=== PATIENT | female | born 1985 | race African-American/Black ===

== ENCOUNTER → 2016-11-13 | Outpatient (CLI) | payer OTHER | LOC: MW.CHOBGYN 08:58 | PROVIDERS: ATTEND Obstetrics & Gynecology | DX: Z34.90 Encounter for supervision of normal pregnancy, unspecified, unspecified trimester (principal); N91.2 Amenorrhea, unspecified | CPT/HCPCS: 81003; 81025; 87480; 87491; 87510; 87591; 87660 ==

== ENCOUNTER → 2016-12-08 | Outpatient (CLI) | payer OTHER | LOC: MW.CHOBGYN 09:14 | PROVIDERS: ATTEND Obstetrics & Gynecology | DX: Z34.90 Encounter for supervision of normal pregnancy, unspecified, unspecified trimester (principal) | CPT/HCPCS: 81003 ==

== ENCOUNTER 2017-06-02 09:57 | Inpatient (IN) | payer OTHER ==
[2017-06-02] MEDS ORDERED: Oxytocin/0.9 % Sodium Chloride 30 UNIT/500 ML BAG IV ONE (10:00)
[2017-06-02] MEDS ORDERED: Lidocaine 1% 50 ML MDV INJECT PRN (10:00)
[2017-06-02] MEDS ORDERED: Oxytocin/0.9 % Sodium Chloride 30 UNIT/500 ML BAG ONE (10:11)
--- NOTE | 2017-06-02 10:36 | PCM.LDHP ---
L&D History of Present Illness - General Date of Service: 06/02/17 Admit Problem/Dx: Admission Diagnosis/Problem Admission Diagnosis/Problem Source of Information: Patient History Limitations: Reports: No Limitations - History of Present Illness Improves with: Reports: None Worsens with: Reports: None Associated Symptoms: Reports: N H&P Review of Systems - Review of Systems: Review Of Systems: See Below General: Reports: No Symptoms HEENT: Reports: No Symptoms Pulmonary: Reports: No Symptoms Cardiovascular: Reports: No Symptoms Gastrointestinal: Reports: No Symptoms Genitourinary: Reports: No Symptoms Musculoskeletal: Reports: No Symptoms Skin: Reports: No Symptoms Psychiatric: Reports: No Symptoms Neurological: Reports: No Symptoms Hematologic/Lymphatic: Reports: No Symptoms Immunologic: Reports: No Symptoms L&D Exam - Exam Exam: See Below - OB Specific Fundal Height In cm: 38 Contraction Duration (sec): 45 Contraction Frequency (min): 2-3 Contraction Intensity: Moderate to Strong Movement: Active Heart Tones: Present Presentation: Vertex - Smallwood Score Smallwood Score Cervix Position: Anterior Smallwood Score Consistency: Soft Smallwood Score Effacement: >80% Smallwood Score Dilation: > 5 cm Smallwood Score 's Station: -1 ,0 Smallwood Score Total: 12 - Exam General: Alert, Oriented HEENT: PERRLA, Conjunctiva Clear, EACs Clear, EOMI, Hearing Intact, Mucosa Moist & [place], Nares Patent, Normal Nasal Septum, Posterior Pharynx Clear, TMs Clear Neck: Supple, Trachea Midline Lungs: Clear to Auscultation, Normal Respiratory Effort Cardiovascular: Regular Rate, Regular Rhythm GI/Abdominal Exam: Normal Bowel Sounds, Soft, Non-Tender, No Organomegaly, No Distention, No Abnormal Bruit, No Mass, Pelvis Stable Rectal Exam: Normal Exam, Normal Rectal Tone Genitourinary: Normal external exam, Normal bimanual exam, Normal speculum exam Back Exam: Normal Inspection, Full Range of Motion Extremities: Normal Inspection, Normal Range of Motion, Non-Tender, No Pedal Edema, Normal Capillary Refill Skin: Warm, Dry, Intact Neurological: Cranial Nerves Intact, Reflexes Equal Bilateral Psychiatric: Alert, Normal Affect, Normal Mood Problem List Initiated/Reviewed/Updated: Yes Orders Last 24hrs: Term in active labor. CX. c/c/v/intact/0
[2017-06-02] MEDS ORDERED: Lanolin 100% Cream 7 GM Tube TOP PRN (10:37)
[2017-06-02] MEDS ORDERED: Docusate Sodium 100 MG Cap PO PRN (10:37)
[2017-06-02] MEDS ORDERED: Benzocaine/Menthol 20%-0.5% Spray 78 GM Cannister TOP PRN (10:37)
[2017-06-02] MEDS ORDERED: Ibuprofen 400 MG Tab PO PRN (10:37)
[2017-06-02] MEDS ORDERED: Acetaminophen 500 MG Tab PO PRN (10:37)
[2017-06-02] MEDS ORDERED: Bisacodyl 10 MG Supp RECTAL PRN (10:37)
[2017-06-02] MEDS ORDERED: Witch Hazel Medicated Pads 40/Jar TOP PRN (10:37)
[2017-06-02] MEDS ORDERED: Lidocaine 1% 50 ML MDV ONE (10:50)
--- NOTE | 2017-06-02 11:22 | OR ---
SURGEON: Jaron Brown MD DATE OF PROCEDURE: DELIVERY NOTE. Reyna is a 31-year-old patient. She is para 1-0-0-1. She is followed in our clinic primarily at this by our faculty criminal justice Mechelle Shilrey. She is 38 plus 4. The patient has no complication. However, her GBS status was unknown or it is not done in time. She presented to Labor and Delivery in active labor and at the time of admission she was complete complete, vertex, 0 to +1 station with intact membrane. heart rate was category 1. The patient did have artificial rupture of the membranes by me and she went ahead and had a normal spontaneous vaginal delivery of a female fetus. score is 8 and 9. Weight is not available at this time. Small midline episiotomy is needed for the delivery. The placenta delivered spontaneous complete and intact and repair of the episiotomy was done with 3-0 Vicryl after infiltrating the area with 1% Xylocaine for local anesthesia. Estimated blood loss is 250-300 mL in this delivery. There was no complication. MADDISON / JOHN /[id number]
[2017-06-02] MEDS: Ibuprofen 800 MG Tab PO PRN (11:54)
[2017-06-02] MEDS: Acetaminophen 500 MG Tab PO PRN ×2 (15:19→22:24)
[2017-06-02] MEDS: Benzocaine/Cetylpyridinium/Menthol Lozenge MUCMEM PRN ×2 (15:19→20:12)
[2017-06-02] MEDS: oxyCODONE 5 MG Tab PO PRN ×2 (15:21→22:25)
[2017-06-02] MEDS ORDERED: Misoprostol 200 MCG Tab PO PRN (15:46)
[2017-06-02] MEDS ORDERED: Water For Irrigation,Sterile 1,000 ML Container IRR PRN (15:46)
[2017-06-02] MEDS ORDERED: Carboprost Tromethamine 250 MCG/1 ML Amp IM PRN (15:46)
[2017-06-02] MEDS ORDERED: Sodium Chloride 0.9% 10 ML Syringe FLUSH PRN (15:46)
[2017-06-02] MEDS ORDERED: Methylergonovine 0.2 MG/1 ML Amp IM PRN (15:46)
[2017-06-02] MEDS ORDERED: Sodium Chloride 0.9% 2.5 ML Syringe FLUSH PRN (15:46)
[2017-06-02] MEDS ORDERED: Lactated Ringers 1,000 ML IV SCH (16:00)
[2017-06-03] MEDS: Ibuprofen 800 MG Tab PO PRN (01:00)
[2017-06-03] MEDS: Benzocaine/Cetylpyridinium/Menthol Lozenge MUCMEM PRN (05:16)
[2017-06-03] MEDS ORDERED: guaiFENesin/Dextromethorphan 100-10 MG/5 ML Soln 10 ML Cup PO PRN (05:54)
--- NOTE | 2017-06-03 11:04 | PCM.PNPP ---
- General Info Date of Service: 06/03/17 Functional Status: Reports: Pain Controlled - Review of Systems General: Reports: No Symptoms HEENT: Reports: No Symptoms Pulmonary: Reports: No Symptoms Cardiovascular: Reports: No Symptoms Gastrointestinal: Reports: No Symptoms Genitourinary: Reports: No Symptoms Musculoskeletal: Reports: No Symptoms Skin: Reports: No Symptoms Neurological: Reports: No Symptoms Psychiatric: Reports: No Symptoms - General Info Date of Service: 06/03/17 - Patient Data Vital Signs - Most Recent: Last Vital Signs Temp 36.9 C 06/03/17 07:48 Pulse 90 06/03/17 07:48 Resp 15 06/03/17 07:48 BP 108/66 06/03/17 07:48 Pulse Ox 98 06/03/17 07:48 Weight - Most Recent: 82.781 kg Lab Results - Last 24 Hours: Laboratory Results - last 24 hr 06/02/17 06/02/17 06/03/17 Range/Units 12:14 12:14 05:20 WBC 10.65 (4.0-11.0) K/uL RBC 3.70 L (4.30-5.90) M/uL Hgb 10.0 L 9.1 L (12.0-16.0) g/dL Hct 32.4 L 29.0 L (36.0-46.0) % MCV 87.6 (80.0-98.0) fL MCH 27.0 (27.0-32.0) pg MCHC 30.9 L (31.0-37.0) g/dL RDW Std Deviation 49.9 (28.0-62.0) fl RDW Coeff of Gricelda 16 H (11.0-15.0) % Plt Count 246 (150-400) K/uL MPV 9.10 (7.40-12.00) fL Nucleated RBC % 0.0 /100WBC Nucleated RBCs # 0 K/uL Blood Type O POSITIVE Antibody Screen NEGATIVE Med Orders - Current: Current Medications Acetaminophen (Tylenol Extra Strength) 500 mg PO Q4H PRN PRN Reason: Pain Last Admin: 06/02/17 22:24 Dose: 500 mg Acetaminophen (Tylenol Extra Strength) 1,000 mg PO Q4H PRN PRN Reason: Pain Benzocaine/Menthol (Dermoplast Pain Relief 20%-0.5% Reading) 78 gm TOP ASDIRECTED PRN PRN Reason: Perineal Comfort Measure Last Admin: 06/02/17 13:55 Dose: 1 can Benzocaine/Menthol (Cepacol Sore Throat) 1 lozenge MUCMEM ASDIRECTED PRN PRN Reason: throat pain Last Admin: 06/03/17 05:16 Dose: 1 lozenge Bisacodyl (Dulcolax) 10 mg RECTAL .ONCE PRN PRN Reason: Constipation Carboprost Tromethamine (Hemabate Ds) 250 mcg IM ASDIRECTED PRN PRN Reason: Post Hemorrhage Docusate Sodium (Colace) 100 mg PO BID PRN PRN Reason: Constipation Emollient Ointment (Lansinoh Hpa) 0 gm TOP ASDIRECTED PRN PRN Reason: Sore Nipples Guaifenesin/Dextromethorphan (Robitussin Dm) 10 ml PO Q6H PRN PRN Reason: Cough Last Admin: 06/03/17 06:55 Dose: 10 ml Lactated Ringer's (Ringers, Lactated) 1,000 mls @ 150 mls/hr IV ASDIRECTED IJEOMA Ibuprofen (Motrin) 400 mg PO Q4H PRN PRN Reason: Pain Ibuprofen (Motrin) 800 mg PO Q6H PRN PRN Reason: Pain Last Admin: 06/03/17 01:00 CDT Dose: 800 mg Lidocaine HCl (Xylocaine 1%) 50 ml INJECT .ONCE PRN PRN Reason: Laceration repair Methylergonovine Maleate (Methergine) 0.2 mg IM ASDIRECTED PRN PRN Reason: Post Hemorrhage Misoprostol (Cytotec) 200 mcg PO .ONCE PRN PRN Reason: Post Hemorrhage Oxycodone HCl (Oxycodone) 5 mg PO Q2H PRN PRN Reason: Pain Last Admin: 06/02/17 22:25 Dose: 5 mg Sodium Chloride (Saline Flush) 10 ml FLUSH ASDIRECTED PRN PRN Reason: Keep Vein Open Sodium Chloride (Saline Flush) 2.5 ml FLUSH ASDIRECTED PRN PRN Reason: Keep Vein Open Sterile Water (Sterile Water For Irrigation) 1,000 ml IRR ASDIRECTED PRN PRN Reason: delivery Witch Belinda (Tucks) 1 pad TOP ASDIRECTED PRN PRN Reason: comfort care Discontinued Medications Oxytocin/Sodium Chloride (Oxytocin 30 Unit/500 Ml-Ns) Confirm Administered Dose 30 unit in 500 mls @ as directed .ROUTE .STK-MED ONE Stop: 06/02/17 10:12 Last Admin: 06/02/17 10:55 Dose: 30 unit Oxytocin/Sodium Chloride (Oxytocin 30 Unit/500 Ml-Ns) 30 unit in 500 mls @ 500 mls/hr IV ONETIME ONE Stop: 06/02/17 10:59 Lidocaine HCl (Xylocaine 1%) Confirm Administered Dose 50 ml .ROUTE .STK-MED ONE Stop: 06/02/17 10:51 Last Admin: 06/02/17 10:55 Dose: 50 ml - Interaction Infant Disposition, : in Room with Family Interaction: Holding Infant Feeding: Attempted ; Nursed Fair/Poor Support Person: - Recovery Exam Fundal Tone: Firm Fundal Level: At Umbilicus Fundal Placement: Midline Lochia Amount: Scant Lochia Color: Rubra/Red Perineum Description: Other (see below) Other Perinuem Description: with repaired episiotomy Episiotomy/Laceration: Approximated Bladder Status: Nonpalpable Urinary Elimination: Voided - Exam General: Alert, Oriented HEENT: Pupils Equal Neck: Supple Lungs: Clear to Auscultation, Normal Respiratory Effort Cardiovascular: Regular Rate, Regular Rhythm GI/Abdominal Exam: Normal Bowel Sounds, Soft, Non-Tender, No Organomegaly, No Distention, No Abnormal Bruit, No Mass, Pelvis Stable Extremities: Normal Inspection, Normal Range of Motion, Non-Tender, No Pedal Edema, Normal Capillary Refill Skin: Warm, Dry, Intact Wound/Incisions: Healing Well Neurological: No New Focal Deficit Psy/Mental Status: Alert, Normal Affect, Normal Mood - Problem List Review Problem List Initiated/Reviewed/Updated: Yes - My Orders Last 24 Hours: My Active Orders 06/02/17 14:55 Benzocaine/Cetylpyrd/Menthol [Cepacol Sore Throat] 1 lozenge MUCMEM ASDIRECTED PRN 06/02/17 15:46 May Shower [RC] ASDIRECTED Notify Provider [RC] PRN Vital Signs [RC] PER UNIT ROUTINE Carboprost Tromethamine [Hemabate DS] 250 mcg IM ASDIRECTED PRN Methylergonovine [Methergine] 0.2 mg IM ASDIRECTED PRN Misoprostol [Cytotec] 200 mcg PO .ONCE PRN Sodium Chloride 0.9% [Saline Flush] 10 ml FLUSH ASDIRECTED PRN Sodium Chloride 0.9% [Saline Flush] 2.5 ml FLUSH ASDIRECTED PRN Water For Irrigation,Sterile [Sterile Water for Irrigation] 1,000 ml IRR ASDIRECTED PRN Scalp Electrode [WOMSER] Per Unit Routine Peripheral IV Insertion Adult [OM.PC] Routine 06/02/17 16:00 Lactated Ringers [Ringers, Lactated] 1,000 ml IV ASDIRECTED 06/03/17 05:54 Dextromethorphan/guaiFENesin [Robitussin DM] 10 ml PO Q6H PRN 06/03/17 Lunch Regular Diet [DIET] - Assessment Assessment:: S/P doing well - Plan Plan:: To go home today
== END 2017-06-03 17:05 | disposition home or self-care (01) | DRG 775 ==
LOC: MW.OBCHECK 09:57 → MW.OB 09:57 → MW.OBCHECK 10:48 → OBSVTOIN 10:48 → INTOOBSV 10:48 → UNDOADMOB 10:48 → MW.OB 17:00 → UNDODISIN 06-03 17:05
PROVIDERS: ADMIT Family Medicine; ATTEND Obstetrics & Gynecology
PROC: 10E0XZZ Delivery of Products of Conception, External Approach (ICD-10-PCS; principal; 2017-06-02)
PROC: 10907ZC Drainage of Amniotic Fluid, Therapeutic from Products of Conception, Via Natural or Artificial Opening (ICD-10-PCS; 2017-06-02)
PROC: 0W8NXZZ Division of Female Perineum, External Approach (ICD-10-PCS; 2017-06-02)
DX: O70.9 Perineal laceration during delivery, unspecified (principal); Z3A.38 38 weeks gestation of pregnancy; Z37.0 Single live birth
CPT/HCPCS: 36415; 59025; 59409; 85014; 85018; 85027; 86850; 86900; 86901; A9270-GY; J2590

== ENCOUNTER 2019-05-24 19:33 | Inpatient (IN) | payer BC ==
[2019-05-24] MEDS ORDERED: Lidocaine 1% 50 ML MDV INJECT PRN (19:51)
[2019-05-24] MEDS ORDERED: Butorphanol 1 MG/ML SDV IVPUSH PRN (19:51)
[2019-05-24] MEDS ORDERED: Sodium Chloride 0.9% 10 ML SDV IV PRN (19:51)
[2019-05-24] MEDS ORDERED: Tranexamic Acid 1,000 MG in Sodium Chloride 0.9% 100 ML IV PRN (19:51)
[2019-05-24] MEDS ORDERED: Sodium Chloride 0.9% 2.5 ML Syringe FLUSH PRN (19:51)
[2019-05-24] MEDS ORDERED: Sodium Chloride 0.9% 10 ML Syringe FLUSH PRN (19:51)
[2019-05-24] MEDS ORDERED: Misoprostol 200 MCG Tab PO PRN (19:51)
[2019-05-24] MEDS ORDERED: Carboprost Tromethamine 250 MCG/1 ML Amp IM PRN (19:51)
[2019-05-24] MEDS ORDERED: Nalbuphine 10 MG/1 ML Vial IVPUSH PRN (19:51)
[2019-05-24] MEDS ORDERED: Water For Irrigation,Sterile 1,000 ML Container IRR PRN (19:51)
[2019-05-24] MEDS ORDERED: Methylergonovine 0.2 MG/1 ML Amp IM PRN (19:51)
[2019-05-24] MEDS ORDERED: Oxytocin/0.9 % Sodium Chloride 30 UNIT/500 ML BAG IV SCH (20:00)
--- NOTE | 2019-05-24 20:17 | PCM.LDHP ---
L&D History of Present Illness - General Date of Service: 05/24/19 Admit Problem/Dx: Patient Status Order with Admit Dx/Problem 05/24/19 19:37 Patient Status [ADT] Routine 05/24/19 19:51 Patient Status [ADT] Routine Admission Diagnosis/Problem Admission Diagnosis/Problem 05/24/19 20:13 33 yo EDC 05/28/2019 39 3/7wks Active labor, O+, RI, GBS neg Source of Information: Patient History Limitations: Reports: No Limitations - History of Present Illness Timing/Duration: Reports: minutes: Location, : Reports: Abdomen Quality: Reports: Stabbing, Throbbing Severity: Severe Improves with: Reports: None Worsens with: Reports: None Associated Symptoms: Reports: N - Related Data Allergies/Adverse Reactions: Allergies Allergy/AdvReac Type Severity Reaction Status Date / Time No Known Allergies Allergy Verified 05/24/19 19:37 Home Medications: Home Meds . [No Known Home Meds] 05/24/19 [History] Social & Family History - Caffeine Use Caffeine Use: Reports: Soda H&P Review of Systems - Review of Systems: Review Of Systems: See Below General: Reports: No Symptoms HEENT: Reports: No Symptoms Pulmonary: Reports: No Symptoms Cardiovascular: Reports: No Symptoms Gastrointestinal: Reports: No Symptoms Genitourinary: Reports: No Symptoms Musculoskeletal: Reports: No Symptoms Skin: Reports: No Symptoms Psychiatric: Reports: No Symptoms Neurological: Reports: No Symptoms Hematologic/Lymphatic: Reports: No Symptoms Immunologic: Reports: No Symptoms L&D Exam - Exam Exam: See Below - Vital Signs Weight: 86.183 kg - OB Specific Contraction Intensity: Strong Movement: Active Heart Tones: Present Heart Rate (FHR) Variability: Moderate (6-25 bmp) Presentation: Vertex - Smallwood Score Smallwood Score Cervix Position: Anterior Smallwood Score Consistency: Soft Smallwood Score Effacement: >80% Smallwood Score Dilation: > 5 cm Smallwood Score Infant's Station: -1 ,0 Smallwood Score Total: 12 - Exam General: Alert, Oriented HEENT: Hearing Intact Lungs: Clear to Auscultation, Normal Respiratory Effort Cardiovascular: Regular Rate, Regular Rhythm, Normal S1, Normal S2 GI/Abdominal Exam: Soft, Non-Tender, No Distention, No Mass, Pelvis Stable Rectal Exam: Deferred Genitourinary: Normal external exam, Cervical dilitation Back Exam: Normal Inspection, Full Range of Motion Extremities: Normal Inspection, Normal Range of Motion, Non-Tender, No Pedal Edema, Normal Capillary Refill Skin: Warm, Dry, Intact Neurological: Cranial Nerves Intact, Strength Equal Bilateral, Normal Gait, Normal Speech, Normal Tone, Sensation Intact Psychiatric: Alert, Normal Affect, Normal Mood - Problem List (1) Supervision of normal IUP (intrauterine ) in multigravida SNOMED Code(s): 523564704, 313495277, [id number] ICD Code: Z34.80 - ENCOUNTER FOR SUPRVSN OF NORMAL , UNSP TRIMESTER Status: Acute Priority: High Current Visit: Yes Qualifiers: Trimester: third trimester Qualified Code(s): Z34.83 - Encounter for supervision of other normal , third trimester Problem List Initiated/Reviewed/Updated: Yes Orders Last 24hrs: Active Orders 24 hr Category Date Time Status Patient Status [ADT] Routine ADT 05/24/19 19:51 Active Heart Tones [RC] CONTINUOUS Care 05/24/19 19:51 Active Non Stress Test [RC] PER UNIT ROUTINE Care 05/24/19 19:37 Active May Shower [RC] ASDIRECTED Care 05/24/19 19:51 Active Notify Provider [RC] PRN Care 05/24/19 19:51 Active Up ad Sandy [RC] ASDIRECTED Care 05/24/19 19:37 Active Vaginal Exam [RC] Click to Edit Care 05/24/19 19:37 Active Vital Signs [RC] PER UNIT ROUTINE Care 05/24/19 19:37 Active CBC W/O DIFF,HEMOGRAM [HEME] Routine Lab 05/24/19 19:51 Ordered RAPID PLASMA REAGIN, QUANT [REF] Routine Lab 05/24/19 19:51 Ordered TYPE AND SCREEN [BBK] Routine Lab 05/24/19 19:51 Ordered Butorphanol [Stadol] Med 05/24/19 19:51 Active 1 mg IVPUSH Q1H PRN Carboprost Tromethamine [Hemabate DS] Med 05/24/19 19:51 Active 250 mcg IM ASDIRECTED PRN Lactated Ringers [Ringers, Lactated] 1,000 ml Med 05/24/19 20:00 Active IV ASDIRECTED Lidocaine 1% [Xylocaine 1%] Med 05/24/19 19:51 Active 50 ml INJECT ONETIME PRN Methylergonovine [Methergine] Med 05/24/19 19:51 Active 0.2 mg IM ASDIRECTED PRN Nalbuphine [Nubain] Med 05/24/19 19:51 Active 10 mg IVPUSH Q1H PRN Oxytocin/0.9 % Sodium Chloride [Oxytocin 30 Unit/500 ML Med 05/24/19 20:00 Active -NS] 30 unit in 500 ml IV TITRATE Sodium Chloride 0.9% [Normal Saline] Med 05/24/19 19:51 Active 10 ml IV ASDIRECTED PRN Sodium Chloride 0.9% [Saline Flush] Med 05/24/19 19:51 Active 10 ml FLUSH ASDIRECTED PRN Sodium Chloride 0.9% [Saline Flush] Med 05/24/19 19:51 Active 2.5 ml FLUSH ASDIRECTED PRN Tranexamic Acid [Cyklokapron] 1,000 mg Med 05/24/19 19:51 Active Sodium Chloride 0.9% [Normal Saline] 100 ml IV ONETIME Water For Irrigation,Sterile [Sterile Water for Med 05/24/19 19:51 Active Irrigation] 1,000 ml IRR ASDIRECTED PRN miSOPROStol [Cytotec] Med 05/24/19 19:51 Active 200 mcg PO ONETIME PRN Scalp Electrode [WOMSER] Per Unit Routine Oth 05/24/19 19:51 Ordered Peripheral IV Insertion Adult [OM.PC] Routine Oth 05/24/19 19:51 Ordered Resuscitation Status Routine Resus Stat 05/24/19 19:37 Ordered Medication Orders Butorphanol Tartrate (Stadol) 1 mg IVPUSH Q1H PRN PRN Reason: Pain Carboprost Tromethamine (Hemabate Ds) 250 mcg IM ASDIRECTED PRN PRN Reason: Post Hemorrhage Tranexamic Acid 1,000 mg/ (Sodium Chloride) 110 mls @ 660 mls/hr IV ONETIME PRN PRN Reason: Bleeding Lactated Ringer's (Ringers, Lactated) 1,000 mls @ 150 mls/hr IV ASDIRECTED IJEOMA Oxytocin/Sodium Chloride (Oxytocin 30 Unit/500 Ml-Ns) 30 unit in 500 mls @ 999 mls/hr IV TITRATE IJEOMA Lidocaine HCl (Xylocaine 1%) 50 ml INJECT ONETIME PRN PRN Reason: Laceration repair Methylergonovine Maleate (Methergine) 0.2 mg IM ASDIRECTED PRN PRN Reason: Post Hemorrhage Misoprostol (Cytotec) 200 mcg PO ONETIME PRN PRN Reason: Post Hemorrhage Nalbuphine HCl (Nubain) 10 mg IVPUSH Q1H PRN PRN Reason: Pain (severe 7-10) Sodium Chloride (Saline Flush) 10 ml FLUSH ASDIRECTED PRN PRN Reason: Keep Vein Open Sodium Chloride (Saline Flush) 2.5 ml FLUSH ASDIRECTED PRN PRN Reason: Keep Vein Open Sodium Chloride (Normal Saline) 10 ml IV ASDIRECTED PRN PRN Reason: IV Use Sterile Water (Sterile Water For Irrigation) 1,000 ml IRR ASDIRECTED PRN PRN Reason: delivery Assessment/Plan Comment:: Labor A: 33 yo EDC 05/28/2019 39 3/7wks Active labor, O+, RI, GBS neg P: Admit, epidural, anticipate . Dr Brown updated.
[2019-05-24] MEDS ORDERED: fentaNYL 100 MCG/2 ML SDV ONE (20:18)
[2019-05-24] MEDS ORDERED: Ropivacaine HCl/PF 100 ML ONE (20:19)
[2019-05-24] MEDS: Lactated Ringers 1,000 ML IV SCH ×2 (20:30→21:07)
--- NOTE | 2019-05-24 21:39 | PCM.PREANE ---
Preanesthetic Assessment - Anesthesia/Transfusion/Family Hx Anesthesia History: No Prior Anesthesia Family History of Anesthesia Reaction: No Transfusion History: No Prior Transfusion(s) - Physical Assessment NPO Status Date: 05/24/19 NPO Status Time: 15:00 Height: 1.68 m Weight: 86.183 kg ASA Class: 1 - Lab Values: Laboratory Last Values WBC 5.47 K/uL (4.0-11.0) 05/24/19 20:08 RBC 4.40 M/uL (4.30-5.90) 05/24/19 20:08 Hgb 13.1 g/dL (12.0-16.0) 05/24/19 20:08 Hct 41.1 % (36.0-46.0) 05/24/19 20:08 MCV 93.4 fL (80.0-98.0) 05/24/19 20:08 MCH 29.8 pg (27.0-32.0) 05/24/19 20:08 MCHC 31.9 g/dL (31.0-37.0) 05/24/19 20:08 RDW Std Deviation 46.0 fl (28.0-62.0) 05/24/19 20:08 RDW Coeff of Gricelda 14 % (11.0-15.0) 05/24/19 20:08 Plt Count 190 K/uL (150-400) 05/24/19 20:08 MPV 8.90 fL (7.40-12.00) 05/24/19 20:08 Nucleated RBC % 0.0 /100WBC 05/24/19 20:08 Nucleated RBCs # 0 K/uL 05/24/19 20:08 Blood Type O POSITIVE 05/24/19 20:08 Antibody Screen NEGATIVE 05/24/19 20:08 - Allergies Allergies/Adverse Reactions: Allergies Allergy/AdvReac Type Severity Reaction Status Date / Time No Known Allergies Allergy Verified 05/24/19 19:37 - Acknowledgements Anesthesia Type Planned: Epidural Pt an Appropriate Candidate for the Planned Anesthesia: Yes Alternatives and Risks of Anesthesia Discussed w Pt/Guardian: Yes Pt/Guardian Understands and Agrees with Anesthesia Plan: Yes PreAnesthesia Questionnaire - HOME MEDS Home Medications: Home Meds . [No Known Home Meds] 05/24/19 [History] - CURRENT (IN HOUSE) MEDS Current Meds: Current Medications Butorphanol Tartrate (Stadol) 1 mg IVPUSH Q1H PRN PRN Reason: Pain Carboprost Tromethamine (Hemabate Ds) 250 mcg IM ASDIRECTED PRN PRN Reason: Post Hemorrhage Tranexamic Acid 1,000 mg/ (Sodium Chloride) 110 mls @ 660 mls/hr IV ONETIME PRN PRN Reason: Bleeding Lactated Ringer's (Ringers, Lactated) 1,000 mls @ 150 mls/hr IV ASDIRECTED [facility] Last Admin: 05/24/19 21:07 Dose: 150 mls/hr Oxytocin/Sodium Chloride (Oxytocin 30 Unit/500 Ml-Ns) 30 unit in 500 mls @ 999 mls/hr IV TITRATE [facility] Lidocaine HCl (Xylocaine 1%) 50 ml INJECT ONETIME PRN PRN Reason: Laceration repair Methylergonovine Maleate (Methergine) 0.2 mg IM ASDIRECTED PRN PRN Reason: Post Hemorrhage Misoprostol (Cytotec) 200 mcg PO ONETIME PRN PRN Reason: Post Hemorrhage Nalbuphine HCl (Nubain) 10 mg IVPUSH Q1H PRN PRN Reason: Pain (severe 7-10) Sodium Chloride (Saline Flush) 10 ml FLUSH ASDIRECTED PRN PRN Reason: Keep Vein Open Sodium Chloride (Saline Flush) 2.5 ml FLUSH ASDIRECTED PRN PRN Reason: Keep Vein Open Sodium Chloride (Normal Saline) 10 ml IV ASDIRECTED PRN PRN Reason: IV Use Sterile Water (Sterile Water For Irrigation) 1,000 ml IRR ASDIRECTED PRN PRN Reason: delivery Discontinued Medications Fentanyl (Sublimaze) Confirm Administered Dose 100 mcg .ROUTE .Razorsight-MED ONE Stop: 05/24/19 20:19 Last Admin: 05/24/19 21:19 Dose: Not Given Ropivacaine (Naropin 0.2%) Confirm Administered Dose 100 mls @ as directed .ROUTE .STK-MED ONE Stop: 05/24/19 20:20 Last Admin: 05/24/19 21:19 Dose: Not Given
--- NOTE | 2019-05-24 21:44 | PCM.PRNOTE ---
- Free Text/Narrative Note: Anes Note Yue requests epidural for L&D. Sitting Position. 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 Epidural placed Level 3-4 midline approach, 3rd attempt. BRIJESH at 5 cm. Epidural cath threaded 5 cm with ease. Epidural cath secured at 10 cm at skin using sterile clear adhesive dressing. Test dose 0920 3 cc 1.5% lido with epi negative. Load 10cc 0.2% ropivicaine with 1 mcg/cc fentanyl in slow divided doses. Pump started same solution at 8 cc hr with 6 cc q 20 min prn bolus. Time with patient [id number] [facility] [employer]
[2019-05-24] MEDS ORDERED: Benzocaine/Menthol 20%-0.5% Spray 78 GM Cannister TOP PRN (22:48)
[2019-05-24] MEDS ORDERED: Bisacodyl 10 MG Supp RECTAL PRN (22:48)
[2019-05-24] MEDS ORDERED: Acetaminophen 500 MG Tab PO PRN (22:48)
[2019-05-24] MEDS ORDERED: Witch Hazel Medicated Pads 40/Jar TOP PRN (22:48)
[2019-05-24] MEDS ORDERED: Lanolin 100% Cream 7 GM Tube TOP PRN (22:48)
[2019-05-24] MEDS ORDERED: Docusate Sodium 100 MG Cap PO PRN (22:48)
[2019-05-24] MEDS ORDERED: Ibuprofen 400 MG Tab PO PRN (22:48)
[2019-05-24] MEDS ORDERED: oxyCODONE 5 MG Tab PO PRN (22:48)
--- NOTE | 2019-05-24 22:48 | PCM.DEL ---
L & D Note - General Info Date of Service: 05/24/19 Mother's Due Date: 05/28/19 - Delivery Note Labor: Spontaneous Delivery Outcome: Livebirth Infant Delivery Method: Spontaneous Vaginal Delivery-Single Delivery Mode: Spontaneous Presentation: Vertex Nuchal Cord: Present (reduced over head) Anesthesia Type: Epidural Episiotomy Type: None Laceration: None Placenta: Intact, Spontaneous Cord: 3 Vessels Estimated Blood Loss: 100 Resuscitation Needed: No Score 1 min: 8 Score 5 min: 9 Second Stage Interventions: Reports: Pushing, Pulls Own Legs Back - General Info Date of Service: 05/24/19 Admission Dx/Problem (Free Text): Patient Status Order with Admit Dx/Problem 05/24/19 19:37 Patient Status [ADT] Routine 05/24/19 19:51 Patient Status [ADT] Routine Admission Diagnosis/Problem Admission Diagnosis/Problem 05/24/19 20:13 33 yo EDC 05/28/2019 39 3/7wks Active labor, O+, RI, GBS neg Functional Status: Reports: Pain Controlled - Review of Systems General: Reports: No Symptoms HEENT: Reports: No Symptoms Pulmonary: Reports: No Symptoms Cardiovascular: Reports: No Symptoms Gastrointestinal: Reports: No Symptoms Genitourinary: Reports: No Symptoms Musculoskeletal: Reports: No Symptoms Skin: Reports: No Symptoms Neurological: Reports: No Symptoms Psychiatric: Reports: No Symptoms - Patient Data Weight - Most Recent: 86.183 kg Lab Results Last 24 Hours: Laboratory Results - last 24 hr 05/24/19 05/24/19 Range/Units 20:08 20:08 WBC 5.47 (4.0-11.0) K/uL RBC 4.40 (4.30-5.90) M/uL Hgb 13.1 (12.0-16.0) g/dL Hct 41.1 (36.0-46.0) % MCV 93.4 (80.0-98.0) fL MCH 29.8 (27.0-32.0) pg MCHC 31.9 (31.0-37.0) g/dL RDW Std Deviation 46.0 (28.0-62.0) fl RDW Coeff of [place] 14 (11.0-15.0) % Plt Count 190 (150-400) K/uL MPV 8.90 (7.40-12.00) fL Nucleated RBC % 0.0 /100WBC Nucleated RBCs # 0 K/uL Blood Type O POSITIVE Antibody Screen NEGATIVE Med Orders - Current: Current Medications Butorphanol Tartrate (Stadol) 1 mg IVPUSH Q1H PRN PRN Reason: Pain Carboprost Tromethamine (Hemabate Ds) 250 mcg IM ASDIRECTED PRN PRN Reason: Post Hemorrhage Tranexamic Acid 1,000 mg/ (Sodium Chloride) 110 mls @ 660 mls/hr IV ONETIME PRN PRN Reason: Bleeding Lactated Ringer's (Ringers, Lactated) 1,000 mls @ 150 mls/hr IV ASDIRECTED [facility] Last Admin: 05/24/19 21:07 Dose: 150 mls/hr Oxytocin/Sodium Chloride (Oxytocin 30 Unit/500 Ml-Ns) 30 unit in 500 mls @ 999 mls/hr IV TITRATE [facility] Lidocaine HCl (Xylocaine 1%) 50 ml INJECT ONETIME PRN PRN Reason: Laceration repair Methylergonovine Maleate (Methergine) 0.2 mg IM ASDIRECTED PRN PRN Reason: Post Hemorrhage Misoprostol (Cytotec) 200 mcg PO ONETIME PRN PRN Reason: Post Hemorrhage Nalbuphine HCl (Nubain) 10 mg IVPUSH Q1H PRN PRN Reason: Pain (severe 7-10) Sodium Chloride (Saline Flush) 10 ml FLUSH ASDIRECTED PRN PRN Reason: Keep Vein Open Sodium Chloride (Saline Flush) 2.5 ml FLUSH ASDIRECTED PRN PRN Reason: Keep Vein Open Sodium Chloride (Normal Saline) 10 ml IV ASDIRECTED PRN PRN Reason: IV Use Sterile Water (Sterile Water For Irrigation) 1,000 ml IRR ASDIRECTED PRN PRN Reason: delivery Discontinued Medications Fentanyl (Sublimaze) Confirm Administered Dose 100 mcg .ROUTE .STK-MED ONE Stop: 05/24/19 20:19 Last Admin: 05/24/19 21:19 Dose: Not Given Ropivacaine (Naropin 0.2%) Confirm Administered Dose 100 mls @ as directed .ROUTE .STK-MED ONE Stop: 05/24/19 20:20 Last Admin: 05/24/19 21:19 Dose: Not Given - Exam General: Alert, Oriented, Cooperative, No Acute Distress Lungs: Normal Respiratory Effort GI/Abdominal Exam: Soft, Non-Tender (Female) Exam: Normal External Exam, Normal Bimanual Exam, Vaginal Bleeding Back Exam: Normal Inspection Extremities: Normal Inspection, Non-Tender, No Pedal Edema Skin: Warm, Dry, Intact Neurological: No New Focal Deficit, Normal Speech, Normal Tone Psy/Mental Status: Alert, Normal Affect, Normal Mood - Problem List & Annotations (1) Supervision of normal IUP (intrauterine ) in multigravida SNOMED Code(s): 877736460, 116724945, 130980989 Code(s): Z34.80 - ENCOUNTER FOR SUPRVSN OF NORMAL , UNSP TRIMESTER Status: Acute Priority: High Current Visit: Yes Qualifiers: Trimester: third trimester Qualified Code(s): Z34.83 - Encounter for supervision of other normal , third trimester (2) (normal spontaneous vaginal delivery) SNOMED Code(s): 82314000, 657308172 Code(s): O80 - ENCOUNTER FOR FULL-TERM UNCOMPLICATED DELIVERY Status: Acute Priority: High Current Visit: Yes - Problem List Review Problem List Initiated/Reviewed/Updated: Yes - My Orders Last 24 Hours: My Active Orders 05/24/19 19:51 Heart Tones [RC] CONTINUOUS May Shower [RC] ASDIRECTED Notify Provider [RC] PRN Butorphanol [Stadol] 1 mg IVPUSH Q1H PRN Carboprost Tromethamine [Hemabate DS] 250 mcg IM ASDIRECTED PRN Lidocaine 1% [Xylocaine 1%] 50 ml INJECT ONETIME PRN Methylergonovine [Methergine] 0.2 mg IM ASDIRECTED PRN Nalbuphine [Nubain] 10 mg IVPUSH Q1H PRN Sodium Chloride 0.9% [Normal Saline] 10 ml IV ASDIRECTED PRN Sodium Chloride 0.9% [Saline Flush] 10 ml FLUSH ASDIRECTED PRN Sodium Chloride 0.9% [Saline Flush] 2.5 ml FLUSH ASDIRECTED PRN Tranexamic Acid [Cyklokapron] 1,000 mg Sodium Chloride 0.9% [Normal Saline] 100 ml IV ONETIME Water For Irrigation,Sterile [Sterile Water for Irrigation] 1,000 ml IRR ASDIRECTED PRN miSOPROStol [Cytotec] 200 mcg PO ONETIME PRN Scalp Electrode [WOMSER] Per Unit Routine Peripheral IV Insertion Adult [OM.PC] Routine 05/24/19 20:00 Lactated Ringers [Ringers, Lactated] 1,000 ml IV ASDIRECTED Oxytocin/0.9 % Sodium Chloride [Oxytocin 30 Unit/500 ML-NS] 30 unit in 500 ml IV TITRATE 05/24/19 20:08 RAPID PLASMA REAGIN, QUANT [REF] Routine - Plan Plan:: Labor A: 33 yo EDC 05/28/2019 39 3/7wks Active labor, O+, RI, GBS neg P: Admit, epidural, anticipate . Dr Brown updated. Delivery A: of viable female, APGARS 8/9, Wt: 7lb 7oz. Intact perineum. EBL 100cc. Mother and baby stable P: Routine pp plan of care
[2019-05-24] MEDS: Ibuprofen 800 MG Tab PO PRN (23:16)
[2019-05-25] MEDS: Acetaminophen 500 MG Tab PO PRN ×2 (04:30→22:12)
[2019-05-25] MEDS: Ibuprofen 800 MG Tab PO PRN ×2 (05:26→18:38)
--- NOTE | 2019-05-25 07:37 | PCM.POSTAN ---
POST ANESTHESIA ASSESSMENT - MENTAL STATUS Mental Status: Alert - VITAL SIGNS Vital Signs: Last Vital Signs Temp 37.5 C 05/25/19 04:17 Pulse 60 05/25/19 04:17 Resp 17 05/25/19 04:17 BP 117/70 05/25/19 04:17 Pulse Ox 97 05/25/19 04:17 - RESPIRATORY Respiratory Status: Respiratory Rate WNL - CARDIOVASCULAR CV Status: Pulse Rate WNL - GASTROINTESTINAL GI Status: No Symptoms - POST OP HYDRATION Hydration Status: Adequate & Stable
--- NOTE | 2019-05-25 07:38 | PCM48HPAN ---
Post Anesthesia Note - EVALUATION WITHIN 48HRS OF ANESTHETIC Vital Signs in Normal Range: Yes Patient Participated in Evaluation: Yes Respiratory Function Stable: Yes Airway Patent: Yes Cardiovascular Function Stable: Yes Hydration Status Stable: Yes Pain Control Satisfactory: Yes Nausea and Vomiting Control Satisfactory: Yes Mental Status Recovered: Yes Vital Signs: Last Vital Signs Temp 37.5 C 05/25/19 04:17 Pulse 60 05/25/19 04:17 Resp 17 05/25/19 04:17 BP 117/70 05/25/19 04:17 Pulse Ox 97 05/25/19 04:17
--- NOTE | 2019-05-25 09:46 | PCM.PNPP ---
- General Info Date of Service: 05/25/19 Admission Dx/Problem (Free Text): Patient Status Order with Admit Dx/Problem 05/24/19 19:37 Patient Status [ADT] Routine 05/24/19 19:51 Patient Status [ADT] Routine Admission Diagnosis/Problem Admission Diagnosis/Problem 05/24/19 20:13 33 yo EDC 05/28/2019 39 3/7wks Active labor, O+, RI, GBS neg Functional Status: Reports: Pain Controlled, Tolerating Diet, Ambulating, Urinating - Review of Systems General: Reports: No Symptoms HEENT: Reports: No Symptoms Pulmonary: Reports: No Symptoms Cardiovascular: Reports: No Symptoms Gastrointestinal: Reports: No Symptoms Genitourinary: Reports: No Symptoms Musculoskeletal: Reports: No Symptoms Skin: Reports: No Symptoms Neurological: Reports: No Symptoms Psychiatric: Reports: No Symptoms - General Info Date of Service: 05/25/19 - Patient Data Vital Signs - Most Recent: Last Vital Signs Temp 36.9 C 05/25/19 08:20 Pulse 67 05/25/19 08:20 Resp 14 05/25/19 08:20 BP 103/64 05/25/19 08:20 Pulse Ox 98 05/25/19 08:20 Weight - Most Recent: 86.183 kg Lab Results - Last 24 Hours: Laboratory Results - last 24 hr 05/24/19 05/24/19 Range/Units 20:08 20:08 WBC 5.47 (4.0-11.0) K/uL RBC 4.40 (4.30-5.90) M/uL Hgb 13.1 (12.0-16.0) g/dL Hct 41.1 (36.0-46.0) % MCV 93.4 (80.0-98.0) fL MCH 29.8 (27.0-32.0) pg MCHC 31.9 (31.0-37.0) g/dL RDW Std Deviation 46.0 (28.0-62.0) fl RDW Coeff of [place] 14 (11.0-15.0) % Plt Count 190 (150-400) K/uL MPV 8.90 (7.40-12.00) fL Nucleated RBC % 0.0 /100WBC Nucleated RBCs # 0 K/uL Blood Type O POSITIVE Antibody Screen NEGATIVE Med Orders - Current: Current Medications Acetaminophen (Tylenol Extra Strength) 500 mg PO Q4H PRN PRN Reason: Pain Acetaminophen (Tylenol Extra Strength) 1,000 mg PO Q4H PRN PRN Reason: Pain Last Admin: 05/25/19 04:30 Dose: 1,000 mg Benzocaine/Menthol (Dermoplast Pain Relief 20%-0.5% [place]) 78 gm TOP ASDIRECTED PRN PRN Reason: Perineal Comfort Measure Bisacodyl (Dulcolax) 10 mg RECTAL ONETIME PRN PRN Reason: Constipation Docusate Sodium (Colace) 100 mg PO BID PRN PRN Reason: Constipation Emollient Ointment (Lansinoh Hpa) 0 gm TOP ASDIRECTED PRN PRN Reason: Sore Nipples Ibuprofen (Motrin) 400 mg PO Q4H PRN PRN Reason: Pain Ibuprofen (Motrin) 800 mg PO Q6H PRN PRN Reason: Pain Last Admin: 05/25/19 05:26 Dose: 800 mg Oxycodone HCl (Oxycodone) 5 mg PO Q2H PRN PRN Reason: Pain Witch Belinda (Tucks) 1 pad TOP ASDIRECTED PRN PRN Reason: comfort care Discontinued Medications Butorphanol Tartrate (Stadol) 1 mg IVPUSH Q1H PRN PRN Reason: Pain Carboprost Tromethamine (Hemabate Ds) 250 mcg IM ASDIRECTED PRN PRN Reason: Post Hemorrhage Fentanyl (Sublimaze) Confirm Administered Dose 100 mcg .ROUTE .STK-MED ONE Stop: 05/24/19 20:19 Last Admin: 05/24/19 21:19 Dose: Not Given Tranexamic Acid 1,000 mg/ (Sodium Chloride) 110 mls @ 660 mls/hr IV ONETIME PRN PRN Reason: Bleeding Lactated Ringer's (Ringers, Lactated) 1,000 mls @ 150 mls/hr IV ASDIRECTED [facility] Last Admin: 05/24/19 21:07 Dose: 150 mls/hr Oxytocin/Sodium Chloride (Oxytocin 30 Unit/500 Ml-Ns) 30 unit in 500 mls @ 999 mls/hr IV TITRATE [facility] Last Admin: 05/24/19 22:30 Dose: 999 mls/hr Ropivacaine (Naropin 0.2%) Confirm Administered Dose 100 mls @ as directed .ROUTE .Penemarie K Murphy-MED ONE Stop: 05/24/19 20:20 Last Admin: 05/24/19 21:19 Dose: Not Given Lidocaine HCl (Xylocaine 1%) 50 ml INJECT ONETIME PRN PRN Reason: Laceration repair Methylergonovine Maleate (Methergine) 0.2 mg IM ASDIRECTED PRN PRN Reason: Post Hemorrhage Misoprostol (Cytotec) 200 mcg PO ONETIME PRN PRN Reason: Post Hemorrhage Nalbuphine HCl (Nubain) 10 mg IVPUSH Q1H PRN PRN Reason: Pain (severe 7-10) Sodium Chloride (Saline Flush) 10 ml FLUSH ASDIRECTED PRN PRN Reason: Keep Vein Open Sodium Chloride (Saline Flush) 2.5 ml FLUSH ASDIRECTED PRN PRN Reason: Keep Vein Open Sodium Chloride (Normal Saline) 10 ml IV ASDIRECTED PRN PRN Reason: IV Use Sterile Water (Sterile Water For Irrigation) 1,000 ml IRR ASDIRECTED PRN PRN Reason: delivery - Infant Interaction Disposition, : [place] in Room with Family Interaction: Holding Infant Feeding: Encouraged to Breastfeed Support Person: - Recovery Exam Fundal Tone: Firm Fundal Level: At Umbilicus Fundal Placement: Midline Lochia Amount: Scant Lochia Color: Rubra/Red Perineum Description: Intact, Minimal Bruising/Swelling Episiotomy/Laceration: None Bladder Status: Nonpalpable, Voiding Urinary Elimination: Voided - Exam General: Alert, Oriented Lungs: Normal Respiratory Effort GI/Abdominal Exam: Soft, Non-Tender, No Distention, No Mass, Pelvis Stable Extremities: Normal Inspection, Normal Range of Motion, Non-Tender, No Pedal Edema Skin: Warm, Dry, Intact Wound/Incisions: Healing Well Neurological: No New Focal Deficit, Normal Gait, Normal Speech, Normal Tone, Strength Equal Bilateral, Sensation Intact Psy/Mental Status: Alert, Normal Affect, Normal Mood - Problem List & Annotations (1) Supervision of normal IUP (intrauterine ) in multigravida SNOMED Code(s): 223631711, 315656226, 007770122 Code(s): Z34.80 - ENCOUNTER FOR SUPRVSN OF NORMAL , UNSP TRIMESTER Status: Acute Priority: High Current Visit: Yes Qualifiers: Trimester: third trimester Qualified Code(s): Z34.83 - Encounter for supervision of other normal , third trimester (2) (normal spontaneous vaginal delivery) SNOMED Code(s): 33817948, 074555957 Code(s): O80 - ENCOUNTER FOR FULL-TERM UNCOMPLICATED DELIVERY Status: Acute Priority: High Current Visit: Yes - Problem List Review Problem List Initiated/Reviewed/Updated: Yes - My Orders Last 24 Hours: My Active Orders 05/24/19 19:51 Heart Tones [RC] CONTINUOUS May Shower [RC] ASDIRECTED Notify Provider [RC] PRN 05/24/19 20:08 RAPID PLASMA REAGIN, QUANT [REF] Routine 05/24/19 22:48 Acetaminophen [Tylenol Extra Strength] 1,000 mg PO Q4H PRN Acetaminophen [Tylenol Extra Strength] 500 mg PO Q4H PRN Benzocaine/Menthol [Dermoplast Pain Relief 20%-0.5% [place]] 78 gm TOP ASDIRECTED PRN Bisacodyl [Dulcolax] 10 mg RECTAL ONETIME PRN Docusate Sodium [Colace] 100 mg PO BID PRN Ibuprofen [Motrin] 400 mg PO Q4H PRN Ibuprofen [Motrin] 800 mg PO Q6H PRN Lanolin [Lansinoh HPA] See Dose Instructions TOP ASDIRECTED PRN Witch Belinda [Tucks] 1 pad TOP ASDIRECTED PRN oxyCODONE 5 mg PO Q2H PRN Resuscitation Status Routine 05/24/19 22:49 Patient Status [ADT] Routine May Shower [RC] ASDIRECTED Up ad [place] [RC] ASDIRECTED Vital Signs [RC] PER UNIT ROUTINE Assess Lochia [WOMSER] Per Unit Routine Assess Uterine Involution [WOMSER] Per Unit Routine Peripheral IV Discontinue [OM.PC] Routine 05/25/19 Breakfast Regular Diet [DIET] - Plan Plan:: Labor A: 33 yo EDC 05/28/2019 39 3/7wks Active labor, O+, RI, GBS neg P: Admit, epidural, anticipate . Dr Brown updated. Delivery A: of viable female, APGARS 8/9, Wt: 7lb 7oz. Intact perineum. EBL 100cc. Mother and baby stable P: Routine pp plan of care PPD#1 A: VSS, AF, no complaints. Breast and bottle feeding. P: Continue pp plan of care
[2019-05-25] MEDS ORDERED: Lidocaine 2% with EPINEPHrine 1:100,000 20 ML MDV INJECT ONE (15:53)
[2019-05-26] MEDS: Ibuprofen 800 MG Tab PO PRN (07:46)
--- NOTE | 2019-05-26 08:27 | PCM.DCSUM1 ---
Discharge Summary - Hospital Course Free Text/Narrative:: Discharge home with . Follow up in 6 weeks for visit. Diagnosis: Stroke: No Modified [place] Scale: No Symptoms at All Modified [place] Scale Score: 0 - Discharge Data Discharge Date: 05/26/19 Discharge Disposition: Home, Self-Care 01 Condition: Good - Referral to Home Health Primary Care Physician: PCP Unknown - Discharge Diagnosis/Problem(s) (1) Supervision of normal IUP (intrauterine ) in multigravida SNOMED Code(s): 435841106, 899166988, 565972644 ICD Code: Z34.80 - ENCOUNTER FOR SUPRVSN OF NORMAL , UNSP TRIMESTER Status: Acute Priority: High Current Visit: Yes Qualifiers: Trimester: third trimester Qualified Code(s): Z34.83 - Encounter for supervision of other normal , third trimester (2) (normal spontaneous vaginal delivery) SNOMED Code(s): 18535386, 916849550 ICD Code: O80 - ENCOUNTER FOR FULL-TERM UNCOMPLICATED DELIVERY Status: Acute Priority: High Current Visit: Yes - Patient Instructions Diet: Usual Diet as Tolerated Activity: As Tolerated, No Strenuous Activities, Rest and Relax Today Driving: May Drive Today Showering/Bathing: May Shower Notify Provider of: Fever, Increased Pain, Swelling and Redness, Nausea and/or Vomiting Other/Special Instructions: Discharge home with infant. Follow up in 6 weeks for visit. - Discharge Plan *PRESCRIPTION DRUG MONITORING PROGRAM REVIEWED*: Not Applicable *COPY OF PRESCRIPTION DRUG MONITORING REPORT IN PATIENT PHILIP: Not Applicable Prescriptions/Med Rec: Ibuprofen [Motrin] 800 mg PO Q6H PRN #90 tablet PRN Reason: Pain Home Medications: Home Meds Ibuprofen [Motrin] 800 mg PO Q6H PRN #90 tablet 05/26/19 [Rx] Oxygen Therapy Mode: Room Air - Discharge Summary/Plan Comment DC Time >30 min.: Yes - General Info Date of Service: 05/26/19 Admission Dx/Problem (Free Text: Patient Status Order with Admit Dx/Problem 05/24/19 19:37 Patient Status [ADT] Routine 05/24/19 19:51 Patient Status [ADT] Routine Admission Diagnosis/Problem Admission Diagnosis/Problem 05/24/19 20:13 33 yo EDC 05/28/2019 39 3/7wks Active labor, O+, RI, GBS neg Functional Status: Reports: Pain Controlled, Tolerating Diet, Ambulating, Urinating - Review of Systems General: Reports: No Symptoms HEENT: Reports: No Symptoms Pulmonary: Reports: No Symptoms Cardiovascular: Reports: No Symptoms Gastrointestinal: Reports: No Symptoms Genitourinary: Reports: No Symptoms Musculoskeletal: Reports: No Symptoms Skin: Reports: No Symptoms Neurological: Reports: No Symptoms Psychiatric: Reports: No Symptoms - Patient Data Vitals - Most Recent: Last Vital Signs Temp 36.8 C 05/26/19 07:00 Pulse 62 05/26/19 07:00 Resp 18 05/26/19 07:00 BP 117/74 05/26/19 07:00 Pulse Ox 98 05/26/19 07:00 Weight - Most Recent: 86.183 kg Med Orders - Current: Current Medications Acetaminophen (Tylenol Extra Strength) 500 mg PO Q4H PRN PRN Reason: Pain Acetaminophen (Tylenol Extra Strength) 1,000 mg PO Q4H PRN PRN Reason: Pain Last Admin: 05/25/19 22:12 Dose: 1,000 mg Benzocaine/Menthol (Dermoplast Pain Relief 20%-0.5% [place]) 78 gm TOP ASDIRECTED PRN PRN Reason: Perineal Comfort Measure Bisacodyl (Dulcolax) 10 mg RECTAL ONETIME PRN PRN Reason: Constipation Docusate Sodium (Colace) 100 mg PO BID PRN PRN Reason: Constipation Emollient Ointment (Lansinoh Hpa) 0 gm TOP ASDIRECTED PRN PRN Reason: Sore Nipples Ibuprofen (Motrin) 400 mg PO Q4H PRN PRN Reason: Pain Ibuprofen (Motrin) 800 mg PO Q6H PRN PRN Reason: Pain Last Admin: 05/26/19 07:46 Dose: 800 mg Oxycodone HCl (Oxycodone) 5 mg PO Q2H PRN PRN Reason: Pain Witch Belinda (Tucks) 1 pad TOP ASDIRECTED PRN PRN Reason: comfort care Discontinued Medications Butorphanol Tartrate (Stadol) 1 mg IVPUSH Q1H PRN PRN Reason: Pain Carboprost Tromethamine (Hemabate Ds) 250 mcg IM ASDIRECTED PRN PRN Reason: Post Hemorrhage Fentanyl (Sublimaze) Confirm Administered Dose 100 mcg .ROUTE .[facility] ONE Stop: 05/24/19 20:19 Last Admin: 05/24/19 21:19 Dose: Not Given Tranexamic Acid 1,000 mg/ (Sodium Chloride) 110 mls @ 660 mls/hr IV ONETIME PRN PRN Reason: Bleeding Lactated Ringer's (Ringers, Lactated) 1,000 mls @ 150 mls/hr IV ASDIRECTED [facility] Last Admin: 05/24/19 21:07 Dose: 150 mls/hr Oxytocin/Sodium Chloride (Oxytocin 30 Unit/500 Ml-Ns) 30 unit in 500 mls @ 999 mls/hr IV TITRATE [facility] Last Admin: 05/24/19 22:30 Dose: 999 mls/hr Ropivacaine (Naropin 0.2%) Confirm Administered Dose 100 mls @ as directed .ROUTE .[facility] ONE Stop: 05/24/19 20:20 Last Admin: 05/24/19 21:19 Dose: Not Given Lidocaine HCl (Xylocaine 1%) 50 ml INJECT ONETIME PRN PRN Reason: Laceration repair Lidocaine/Epinephrine (Xylocaine 2% With Epinephrine 1:100,000) 20 ml INJECT .[facility] ONE Stop: 05/25/19 15:54 Methylergonovine Maleate (Methergine) 0.2 mg IM ASDIRECTED PRN PRN Reason: Post Hemorrhage Misoprostol (Cytotec) 200 mcg PO ONETIME PRN PRN Reason: Post Hemorrhage Nalbuphine HCl (Nubain) 10 mg IVPUSH Q1H PRN PRN Reason: Pain (severe 7-10) Sodium Chloride (Saline Flush) 10 ml FLUSH ASDIRECTED PRN PRN Reason: Keep Vein Open Sodium Chloride (Saline Flush) 2.5 ml FLUSH ASDIRECTED PRN PRN Reason: Keep Vein Open Sodium Chloride (Normal Saline) 10 ml IV ASDIRECTED PRN PRN Reason: IV Use Sterile Water (Sterile Water For Irrigation) 1,000 ml IRR ASDIRECTED PRN PRN Reason: delivery - Exam General: Reports: Alert, Oriented, Cooperative, No Acute Distress Lungs: Reports: Clear to Auscultation, Normal Respiratory Effort. Denies: Decreased Breath Sounds Cardiovascular: Reports: Regular Rate, Regular Rhythm, No Murmurs GI/Abdominal Exam: Soft, Non-Tender, Pelvis Stable (Female) Exam: Deferred, Vaginal Bleeding Rectal (Female) Exam: Deferred Back Exam: Reports: Normal Inspection, Full Range of Motion Extremities: Normal Inspection, Normal Range of Motion, Non-Tender, No Pedal Edema Skin: Reports: Warm, Dry, Intact Wound/Incisions: Reports: Healing Well Neurological: Reports: No New Focal Deficit, Normal Speech, Normal Tone, Strength Equal Bilateral, Sensation Intact Psy/Mental Status: Reports: Alert, Normal Affect, Normal Mood
== END 2019-05-26 11:45 | disposition home or self-care (01) | DRG 560 ==
LOC: MW.OBCHECK 19:33 → MW.OB 19:35 → MW.OBCHECK 22:29 → OBSVTOIN 22:29 → UNDOADMOB 23:00 → MW.OB 23:00
PROVIDERS: ADMIT Obstetrics & Gynecology; ATTEND Obstetrics & Gynecology
PROC: 10E0XZZ Delivery of Products of Conception, External Approach (ICD-10-PCS; principal; 2019-05-24)
PROC: 3E0R3BZ Introduction of Anesthetic Agent into Spinal Canal, Percutaneous Approach (ICD-10-PCS; 2019-05-24)
PROC: 00HU33Z Insertion of Infusion Device into Spinal Canal, Percutaneous Approach (ICD-10-PCS; 2019-05-24)
PROC: 10907ZC Drainage of Amniotic Fluid, Therapeutic from Products of Conception, Via Natural or Artificial Opening (ICD-10-PCS; 2019-05-24)
DX: O69.81X0 Labor and delivery complicated by cord around neck, without compression, not applicable or unspecified (principal); Z3A.39 39 weeks gestation of pregnancy; Z37.0 Single live birth
CPT/HCPCS: 01967; 36415; 59025; 59409; 85027; 86593; 86850; 86900; 86901; A9270-GY; J2590; J2795; J3010; J7120

== ENCOUNTER 2020-11-28 00:08 | Emergency (ER) | payer BC ==
[2020-11-28] MEDS ORDERED: Sodium Chloride 0.9% 10 ML Syringe FLUSH PRN (00:25)
[2020-11-28] MEDS ORDERED: Sodium Chloride 0.9% 2.5 ML Syringe FLUSH PRN (00:25)
[2020-11-28] MEDS ORDERED: Sodium Chloride 0.9% 1,000 ML IV ONE (00:25)
[2020-11-28 01:48] LABS: BLOOD UREA NITROGEN,BUN 7 mg/dL (7.0-18.0); CARBON DIOXIDE,CO2 27.3 mmol/L (21.0-32.0); CHLORIDE,CL 105 mmol/L (98-107); GLUCOSE RANDOM 102 mg/dL (74-106); POTASSIUM,K 4.1 mmol/L (3.5-5.1); SODIUM,NA 140 mmol/L (136-145)
--- NOTE | 2020-11-28 02:17 | US ---
INDICATION: Bleeding in the 1st trimester, gestational age based on LMP is 8 weeks 6 days TECHNIQUE: Ultrasound OB pelvis transvaginal. Real-time heaton-scale imaging of the pelvis was performed. COMPARISON: None FINDINGS: Sonographic imaging demonstrates a single intrauterine fluid collection with a mean diameter of 0.7 cm. This corresponds to a gestational age of 5 weeks 2 days. A faint yolk sac is identified. No definite pole identified. Gestational age calculated at 5 weeks 2 days. No perigestational hemorrhage identified. The ovaries are of normal size. There are no suspicious fluid collections noted in the cul-de-sac. IMPRESSION: Single intrauterine fluid collection likely representing a gestational sac containing a faint yolk sac but no pole. Ultrasound gestational age calculated at 5 weeks 2 days. Dates are less than anticipated as the gestational age based on LMP is 8 weeks 6 days. Recommend follow-up ultrasound in 2 weeks to assess for presence of embryo. Dictated by Maisha Romero MD @ 11/28/2020 2:15:[address] Maisha Romero @ Nov 28 2020 2:15AM
--- NOTE | 2020-11-28 02:36 | EDM.PDOC ---
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 Patient reports in total she had less than 1 pad of vaginal bleeding. Patient denies any recent fevers, shakes, chills, nausea, vomiting, diarrhea, dysuria, frequency, urgency. Patient denies any abdominal pain or abdominal cramping. Review of systems: As per history of present illness and below otherwise all systems reviewed and negative. Past medical history: As per history of present illness and as reviewed below otherwise noncontributory. Surgical history: As per history of present illness and as reviewed below otherwise noncontributory. Social history: No reported history of drug abuse. Family history: As per history of present illness and as reviewed below otherwise noncontributory. Physical exam: This patient was seen and evaluated during the 2019 SARS-CoV-2 novel coronavirus pandemic period. Community viral transmission is ongoing at time of this encounter and the emergency department is operating under pandemic response procedures. Constitutional: Patient is oriented to person, place, and time. Appears well-developed and well-nourished. No distress. HEENT: Moist mucous membranes Head: Normocephalic and atraumatic Eyes: Right eye exhibits no discharge. Left eye exhibits no discharge. No scleral icterus Neck: Normal range of motion. No tracheal deviation present. Cardiovascular: Normal rate and regular rhythm. Pulmonary: Effort normal, no respiratory distress. Abd: Soft, nondistended, no rebound/guarding, no psoas or obturator signs, no tenderness at Mcberney's point, no Mercer's sign. Pt does not present with an exam that would be consistent with an acute surgical abdomen at this time, nontender to palpation Musculoskeletal: Normal range of motion Neurologic: Alert and oriented to person, place and time. Skin: [place], warm and dry. Psychiatric: Normal mood and affect. Behavior is normal. Judgment and thought content normal. Nursing note and vital signs have been reviewed Diagnostics: Ultrasound reveals a single intrauterine fluid collection likely representing a gestational sac containing a faint yolk sac but no pole. Ultrasound gestational age calculated at 5 weeks 2 days. Dates are less than anticipated is a gestational age based on LMP is 8 weeks and 6 days. Recommend follow-up ultrasound in 2 weeks to assess for presence of diarrhea. Therapeutics: Beta-hCG approximate 2500 Patient is O+ Lab/UA within normal limits Assessment and plan: This is a 34-year-old female who presents ER today secondary to vaginal bleeding while . Patient's ultrasound reveals a fluid collection representing a gestational sac and yolk sac but no pole. I have discussed with the patient the possibilities of a tubal versus early versus miscarriage. They understand the need to follow-up within the week for repeat ultrasound and repeat hormone levels to determine whether or not this is an early or miscarriage or ectopic. Patient right now is clinically hemodynamically stable. Patient has a completely benign abdominal exam. Claudy gaby will be discharged home with instructions to follow-up with OB for further assessment. Reassessment at the time of disposition demonstrates that the patient is in no acute distress. The patient has remained stable throughout the entire ED visit and is without objective evidence for acute process requiring urgent intervention or hospitalization. The patient is stable for discharge, counseling is provided as documented above, discussed symptomatic treatment and specific conditions for return. I have spoken with the patient/caregiver and discussed todays findings, in addition to providing specific details for the plan of care. Questions are answered and there is agreement with the plan. Definitive disposition and diagnosis as appropriate pending reevaluation and review of above. 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: - Infectious Disease History Infectious Disease History: Reports: Other (See Below) Other Infectious Disease History: genital warts - Past Surgical History HEENT Surgical History: Reports: None Dermatological Surgical History: Reports: None Social & Family History - Family History Cardiac: Reports: [place] OBGYN: Reports: - Tobacco Use Tobacco Use Status *Q: Never Tobacco User Second Hand Smoke Exposure: No - Caffeine Use Caffeine Use: Reports: Soda - Recreational Drug Use Recreational Drug Use: No ED ROS GENERAL - Review of Systems Review Of Systems: See Below ED EXAM, GENERAL - Physical Exam Exam: See Below Course - Vital Signs Last Recorded V/S: Last Vital Signs Temp 97.9 F 11/28/20 00:31 Pulse 92 11/28/20 00:31 Resp 14 11/28/20 00:31 BP 138/101 H 11/28/20 00:31 Pulse Ox 100 11/28/20 00:31 - Orders/Labs/Meds Orders: Active Orders 24 hr Category Date Time Status Sodium Chloride 0.9% [Saline Flush] Med 11/28/20 00:25 Active 10 ml FLUSH ASDIRECTED PRN Sodium Chloride 0.9% [Saline Flush] Med 11/28/20 00:25 Active 2.5 ml FLUSH ASDIRECTED PRN Saline Lock Insert [OM.PC] Stat Oth 11/28/20 00:25 Ordered Medication Orders Sodium Chloride (Sodium Chloride 0.9% 10 Ml Syringe) 10 ml FLUSH ASDIRECTED PRN PRN Reason: Keep Vein Open Last Admin: 11/28/20 00:40 Dose: 10 ml Documented by: THOMPSON Sodium Chloride (Sodium Chloride 0.9% 2.5 Ml Syringe) 2.5 ml FLUSH ASDIRECTED PRN PRN Reason: Keep Vein Open Last Admin: 11/28/20 00:40 Dose: 2.5 ml Documented by: THOMPSON Labs: Laboratory Tests 11/28/20 11/28/20 11/28/20 Range/Units 00:30 00:50 00:55 WBC 4.19 (4.0-11.0) K/uL RBC 4.57 (4.30-5.90) M/uL Hgb 13.4 (12.0-16.0) g/dL Hct 40.7 (36.0-46.0) % MCV 89.1 (80.0-98.0) fL MCH 29.3 (27.0-32.0) pg MCHC 32.9 (31.0-37.0) g/dL RDW Std Deviation 37.5 (28.0-62.0) fl RDW Coeff of Gricelda 12 (11.0-15.0) % Plt Count 249 (150-400) K/uL MPV 8.70 (7.40-12.00) fL Neut % (Auto) 36.6 L (48.0-80.0) % Lymph % (Auto) 45.3 H (16.0-40.0) % [place] % (Auto) 16.2 H (0.0-15.0) % Eos % (Auto) 1.7 (0.0-7.0) % Baso % (Auto) 0.2 (0.0-1.5) % Neut # (Auto) 1.5 (1.4-5.7) K/uL Lymph # (Auto) 1.9 (0.6-2.4) K/uL [place] # (Auto) 0.7 (0.0-0.8) K/uL Eos # (Auto) 0.1 (0.0-0.7) K/uL Baso # (Auto) 0.0 (0.0-0.1) K/uL Sodium 140 (136-145) mmol/L Potassium 4.1 (3.5-5.1) mmol/L Chloride 105 (98-107) mmol/L Carbon Dioxide 27.3 (21.0-32.0) mmol/L BUN 7 (7.0-18.0) mg/dL Creatinine 0.8 (0.6-1.0) mg/dL Est Cr Clr Drug Dosing TNP Estimated GFR (MDRD) > 60.0 ml/min Glucose 102 (74-106) mg/dL Calcium 9.1 (8.5-10.1) mg/dL Total Bilirubin 0.2 (0.2-1.0) mg/dL AST 17 (15-37) IU/L ALT 17 (14-63) IU/L Alkaline Phosphatase 103 (46-116) U/L Total Protein 8.4 H (6.4-8.2) g/dL Albumin 3.8 (3.4-5.0) g/dL Globulin 4.6 H (2.6-4.0) g/dL Albumin/Globulin Ratio 0.8 L (0.9-1.6) HCG, Quant 2532.0 mIU/mL Urine Color YELLOW Urine Appearance HAZY Urine pH 6.0 (5.0-8.0) Ur Specific [place] 1.010 (1.001-1.035) Urine Protein NEGATIVE (NEGATIVE) mg/dL Urine Glucose (UA) NEGATIVE (NEGATIVE) mg/dL Urine Ketones NEGATIVE (NEGATIVE) mg/dL Urine Occult Blood LARGE H (NEGATIVE) Urine Nitrite NEGATIVE (NEGATIVE) Urine Bilirubin NEGATIVE (NEGATIVE) Urine Urobilinogen 0.2 (<2.0) EU/dL Ur Leukocyte Esterase TRACE H (NEGATIVE) Urine RBC 1-3 (0-2/HPF) Urine WBC 0-2 (0-5/HPF) Ur Epithelial Cells FEW (NONE-FEW) Urine Bacteria FEW (NEGATIVE) Blood Type 11/28/20 Range/Units 00:55 WBC (4.0-11.0) K/uL RBC (4.30-5.90) M/uL Hgb (12.0-16.0) g/dL Hct (36.0-46.0) % MCV (80.0-98.0) fL MCH (27.0-32.0) pg MCHC (31.0-37.0) g/dL RDW Std Deviation (28.0-62.0) fl RDW Coeff of Gricelda (11.0-15.0) % Plt Count (150-400) K/uL MPV (7.40-12.00) fL Neut % (Auto) (48.0-80.0) % Lymph % (Auto) (16.0-40.0) % [place] % (Auto) (0.0-15.0) % Eos % (Auto) (0.0-7.0) % Baso % (Auto) (0.0-1.5) % Neut # (Auto) (1.4-5.7) K/uL Lymph # (Auto) (0.6-2.4) K/uL [place] # (Auto) (0.0-0.8) K/uL Eos # (Auto) (0.0-0.7) K/uL Baso # (Auto) (0.0-0.1) K/uL Sodium (136-145) mmol/L Potassium (3.5-5.1) mmol/L Chloride (98-107) mmol/L Carbon Dioxide (21.0-32.0) mmol/L BUN (7.0-18.0) mg/dL Creatinine (0.6-1.0) mg/dL Est Cr Clr Drug Dosing Estimated GFR (MDRD) ml/min Glucose (74-106) mg/dL Calcium (8.5-10.1) mg/dL Total Bilirubin (0.2-1.0) mg/dL AST (15-37) IU/L ALT (14-63) IU/L Alkaline Phosphatase (46-116) U/L Total Protein (6.4-8.2) g/dL Albumin (3.4-5.0) g/dL Globulin (2.6-4.0) g/dL Albumin/Globulin Ratio (0.9-1.6) HCG, Quant mIU/mL Urine Color Urine Appearance Urine pH (5.0-8.0) Ur Specific [place] (1.001-1.035) Urine Protein (NEGATIVE) mg/dL Urine Glucose (UA) (NEGATIVE) mg/dL Urine Ketones (NEGATIVE) mg/dL Urine Occult Blood (NEGATIVE) Urine Nitrite (NEGATIVE) Urine Bilirubin (NEGATIVE) Urine Urobilinogen (<2.0) EU/dL Ur Leukocyte Esterase (NEGATIVE) Urine RBC (0-2/HPF) Urine WBC (0-5/HPF) Ur Epithelial Cells (NONE-FEW) Urine Bacteria (NEGATIVE) Blood Type O POSITIVE Meds: Medications Generic Name Dose Route Start Last Admin Trade Name Frejuancarlos PRN Reason Stop Dose Admin Sodium Chloride 10 ml 11/28/20 00:25 11/28/20 00:40 Sodium Chloride 0.9% 10 Ml Syringe FLUSH 10 ml ASDIRECTED PRN Administration Keep Vein Open Sodium Chloride 2.5 ml 11/28/20 00:25 11/28/20 00:40 Sodium Chloride 0.9% 2.5 Ml Syringe FLUSH 2.5 ml ASDIRECTED PRN Administration Keep Vein Open Discontinued Medications Generic Name Dose Route Start Last Admin Trade Name Freq PRN Reason Stop Dose Admin Sodium Chloride 1,000 mls @ 999 mls/hr 11/28/20 00:25 11/28/20 00:39 Normal Saline IV 11/28/20 01:25 999 mls/hr .Bolus ONE Administration Departure - Departure Time of Disposition: 02:35 Disposition: Home, Self-Care 01 Condition: Good Clinical Impression: Vaginal bleeding affecting early - Discharge Information Instructions: Threatened Miscarriage Referrals: PCP,None [Primary Care Provider] - Additional Instructions: Your seen and evaluated in the ER today secondary to vaginal bleeding while . Your ultrasound reveals a single intrauterine fluid collection that likely represents a gestational sac containing a faint yolk sac but no pole is identified. No heart activity is seen. The ultrasound gestational age was calculated at 5 weeks and 2 days. This is much less than the anticipated 8 weeks 6 days calculated by last menstrual period. As we discussed, this may be secondary to an early or this could be a miscarriage. Please make an appointment to see the OB doctors next week to repeat your hormone level so that we can see if it is on the rise or not. Your hormone level today was 2532. They may also need to repeat your ultrasound within the week as well. [facility] [address] [place] [address] [facility] [address] [place] [address] The following information is given to patients seen in the emergency department who are being discharged to home. This information is to outline your options for follow-up care. We provide all patients seen in our emergency department with a follow-up referral. The need for follow-up, as well as the timing and circumstances, are variable depending upon the specifics of your emergency department visit. If you don't have a primary care physician on staff, we will provide you with a referral. We always advise you to contact your personal physician following an emergency department visit to inform them of the circumstance of the visit and for follow-up with them and/or the need for any referrals to a consulting specialist. The emergency department will also refer you to a specialist when appropriate. This referral assures that you have the opportunity for follow-up care with a specialist. All of these measure are taken in an effort to provide you with optimal care, which includes your follow-up. Under all circumstances we always encourage you to contact your private physician who remains a resource for coordinating your care. When calling for follow-up care, please make the office aware that this follow-up is from your recent emergency room visit. If for any reason you are refused follow-up, please contact the [facility] Emergency Department at and asked to speak to the emergency department charge nurse. [facility] [address] [place] [address] [facility] [address] [place] [id number] Sepsis Event Note (ED) - Evaluation Sepsis Screening Result: No Definite Risk - Focused Exam Vital Signs: Vital Signs Temp Pulse Resp BP Pulse Ox 11/28/20 00:31 97.9 F 92 14 138/101 H 100 - My Orders Last 24 Hours: My Active Orders 11/28/20 00:25 Sodium Chloride 0.9% [Saline Flush] 10 ml FLUSH ASDIRECTED PRN Sodium Chloride 0.9% [Saline Flush] 2.5 ml FLUSH ASDIRECTED PRN Saline Lock Insert [OM.PC] Stat - Assessment/Plan Last 24 Hours: My Active Orders 11/28/20 00:25 Sodium Chloride 0.9% [Saline Flush] 10 ml FLUSH ASDIRECTED PRN Sodium Chloride 0.9% [Saline Flush] 2.5 ml FLUSH ASDIRECTED PRN Saline Lock Insert [OM.PC] Stat
== END 2020-11-28 02:39 | disposition home or self-care (01) ==
LOC: MW.ED 00:08
DX: O20.9 Hemorrhage in early pregnancy, unspecified (principal); Z3A.01 Less than 8 weeks gestation of pregnancy
CPT/HCPCS: 36415; 76801; 76801-26; 80053; 81001; 84702; 85025; 86900; 86901; 99283; 99284-25; J7030

== ENCOUNTER 2021-06-16 13:10 | Emergency (ER) | payer BC ==
--- NOTE | 2021-06-16 14:12 | EDM.PDOC ---
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 Patient fell almost 7 days ago will get checked out to make sure the baby was okay. She denies any vaginal bleeding discharge no abdominal pain no nausea vomiting or other complaints. 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: - Infectious Disease History Infectious Disease History: Reports: Other (See Below) Other Infectious Disease History: genital warts - Past Surgical History HEENT Surgical History: Reports: None Dermatological Surgical History: Reports: None Social & Family History - Family History Cardiac: Reports: [place] OBGYN: Reports: - Tobacco Use Second Hand Smoke Exposure: No - Caffeine Use Caffeine Use: Reports: None - Recreational Drug Use Recreational Drug Use: No ED ROS GENERAL - Review of Systems Review Of Systems: See Below Constitutional: Reports: No Symptoms HEENT: Reports: No Symptoms Respiratory: Reports: No Symptoms Cardiovascular: Reports: No Symptoms Endocrine: Reports: No Symptoms GI/Abdominal: Reports: No Symptoms : Reports: No Symptoms Musculoskeletal: Reports: No Symptoms Skin: Reports: No Symptoms Neurological: Reports: No Symptoms Psychiatric: Reports: No Symptoms Hematologic/Lymphatic: Reports: No Symptoms Immunologic: Reports: No Symptoms ED EXAM - Physical Exam Exam: See Below Exam Limited By: No Limitations General Appearance: Alert, WD/WN, No Apparent Distress Eye Exam: Bilateral Eye: EOMI Ears: Normal External Exam Throat/Mouth: Normal Inspection Head: Atraumatic Respiratory/Chest: No Respiratory Distress GI/Abdominal Exam: Normal Bowel Sounds, Soft, Non-Tender Neurological: Alert, Oriented, Normal Cognition, Normal Gait Course - Vital Signs Last Recorded V/S: Last Vital Signs Temp 97.1 F 06/16/21 13:51 Pulse 80 06/16/21 13:51 Resp 20 06/16/21 13:51 BP 118/64 06/16/21 13:51 Pulse Ox 100 06/16/21 13:51 - Orders/Labs/Meds Orders: Active Orders 24 hr Category Date Time Status OB 1st Tri Sgl 1st Gest [US] Stat Exams 06/16/21 14:10 Ordered ABO/RH TYPE [BBK] Stat Lab 06/16/21 14:09 Ordered CBC WITH AUTO DIFF [HEME] Stat Lab 06/16/21 14:09 Ordered COMPREHENSIVE METABOLIC PN,CMP [CHEM] Stat Lab 06/16/21 14:09 Ordered HCG QUANTITATIVE [CHEM] Stat Lab 06/16/21 14:09 Ordered UA W/ALISSA RFLX IF INDICATED [URIN] Stat Lab 06/16/21 14:09 Ordered - Re-Assessments/Exams Free Text/Narrative Re-Assessment/Exam: 06/16/21 14:49 She walked out during her eval 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 We had not done ultrasound yet so no results call patient 4. 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 Departure - Departure Time of Disposition: 14:50 Disposition: Eloped 07 Condition: Fair Clinical Impression: Trauma during - Discharge Information *PRESCRIPTION DRUG MONITORING PROGRAM REVIEWED*: Not Applicable *COPY OF PRESCRIPTION DRUG MONITORING REPORT IN PATIENT PHILIP: Not Applicable Referrals: Jaron Brown MD [Primary Care Provider] - Forms: ED Department Discharge Sepsis Event Note (ED) - Evaluation Sepsis Screening Result: No Definite Risk - Focused Exam Vital Signs: Vital Signs Temp Pulse Resp BP Pulse Ox 06/16/21 13:51 97.1 F 80 20 118/64 100 - My Orders Last 24 Hours: My Active Orders 06/16/21 14:09 ABO/RH TYPE [BBK] Stat CBC WITH AUTO DIFF [HEME] Stat COMPREHENSIVE METABOLIC PN,CMP [CHEM] Stat HCG QUANTITATIVE [CHEM] Stat UA W/ALISSA RFLX IF INDICATED [URIN] Stat 06/16/21 14:10 OB 1st Tri Sgl 1st Gest [US] Stat - Assessment/Plan Last 24 Hours: My Active Orders 06/16/21 14:09 ABO/RH TYPE [BBK] Stat CBC WITH AUTO DIFF [HEME] Stat COMPREHENSIVE METABOLIC PN,CMP [CHEM] Stat HCG QUANTITATIVE [CHEM] Stat UA W/ALISSA RFLX IF INDICATED [URIN] Stat 06/16/21 14:10 OB 1st Tri Sgl 1st Gest [US] Stat Plan: Pt is a 35-year-old female who presents today for evaluation of the following. Patient is 10 weeks . Will obtain ultrasound labs and reassess.
--- NOTE | 2021-06-16 15:53 | US ---
Indication: First trimester with fall. Trauma. Technique: Sonography of the gravid uterus was performed. The examination was performed transabdominally. Doppler was performed to assess heart motion Comparison: There are no prior studies for comparison. Findings: There is a single living intrauterine . The crown rump length measurement of 3.98 weeks which correspond to 10 weeks and 6 days. Yolk sac measuring 6 millimeters is noted which is normal. heart rate is 163 beats per minute which is normal. Heart activity, limb activity and trunk activity was noted. The right ovary was not seen but there was no right adnexal mass. The left ovary measures 4.5 x 2.7 x 2.7 centimeters containing a cyst in the 2 centimeter range. The estimated date of delivery based on ultrasound is 01/06/2022. The estimated date of delivery by LMP is 01/07/2022. The mean sac diameter is 5.8 centimeters. An implantation bleed/subchorionic hemorrhage is noted measuring 2.1 centimeters in maximum dimension. Impression: There is a single live intrauterine gestation at 10 weeks and 6 days with an ultrasound estimated date of delivery of 01/06/2022. Normal heart rate. Small implantation bleed/subchorionic hemorrhage measuring 2 centimeters in greatest dimension. Dictated by Mo Brink MD @ 06/16/2021 3:51:28 PM (Electronically Signed)
== END 2021-06-16 15:00 | disposition left against medical advice (07) ==
LOC: MW.ED 13:10
DX: O9A.23 Injury, poisoning and certain other consequences of external causes complicating the puerperium (principal); T14.90XA Injury, unspecified, initial encounter; Z3A.10 10 weeks gestation of pregnancy; W18.39XA Other fall on same level, initial encounter
CPT/HCPCS: 76801; 76801-26; 99283-25

== ENCOUNTER 2022-01-03 20:20 | Inpatient (IN) | payer BC ==
[2022-01-03] MEDS ORDERED: Tranexamic Acid 1,000 MG in Sodium Chloride 0.9% 100 ML IV PRN (20:38)
[2022-01-03] MEDS ORDERED: Sodium Chloride 0.9% 2.5 ML Syringe FLUSH PRN (20:38)
[2022-01-03] MEDS ORDERED: Ampicillin 2 GM in Sodium Chloride 0.9% 100 ML IV ONE (20:38)
[2022-01-03] MEDS ORDERED: Carboprost Tromethamine 250 MCG/1 ML Amp IM PRN (20:38)
[2022-01-03] MEDS ORDERED: Misoprostol 200 MCG Tab PO PRN (20:38)
[2022-01-03] MEDS ORDERED: Butorphanol 1 MG/ML SDV IVPUSH PRN (20:38)
[2022-01-03] MEDS ORDERED: Lidocaine 1% 50 ML MDV INJECT PRN (20:38)
[2022-01-03] MEDS ORDERED: Water For Irrigation,Sterile 1,000 ML Container IRR PRN (20:38)
[2022-01-03] MEDS ORDERED: Sodium Chloride 0.9% 10 ML Syringe FLUSH PRN (20:38)
[2022-01-03] MEDS ORDERED: Methylergonovine 0.2 MG/1 ML Amp IM PRN (20:38)
[2022-01-03] MEDS ORDERED: Sodium Chloride 0.9% 20 ML SDV IV PRN (20:38)
[2022-01-03] MEDS ORDERED: Misoprostol 25 MCG (1/4 of 100 MCG) Tab VAG PRN ×2 (20:41)
[2022-01-03] MEDS ORDERED: Terbutaline 1 MG/ML SDV SUBCUT PRN (20:41)
[2022-01-03] MEDS ORDERED: Misoprostol 25 MCG (1/4 of 100 MCG) Tab PO ONE (20:43)
[2022-01-03] MEDS ORDERED: ePHEDrine 50 MG/ML SDV IVPUSH PRN ×2 (20:44)
[2022-01-03] MEDS ORDERED: Ropivacaine in NACL,ISO-OSM/PF 800 MG in Premix Bag 1 BAG EPIDUR SCH ×2 (20:45)
[2022-01-03] MEDS ORDERED: Oxytocin/0.9 % Sodium Chloride 30 UNIT/500 ML BAG IV SCH ×2 (20:45)
[2022-01-04] MEDS ORDERED: Ampicillin 1 GM in Sodium Chloride 0.9% 50 ML IV SCH (01:45)
[2022-01-04] MEDS: Lactated Ringers 1,000 ML IV SCH ×2 (02:15→03:15)
[2022-01-04] MEDS ORDERED: Acetaminophen 1,000 MG in Premix Bag 1 BAG IV ONE (03:02)
[2022-01-04] MEDS ORDERED: Ondansetron 4 MG/2 ML SDV ONE (03:15)
[2022-01-04] MEDS ORDERED: Ondansetron 4 MG/2 ML SDV IVPUSH PRN (03:17)
[2022-01-04] MEDS ORDERED: Acetaminophen 500 MG Tab PO PRN ×2 (06:57)
[2022-01-04] MEDS ORDERED: oxyCODONE 5 MG Tab PO PRN (06:57)
[2022-01-04] MEDS ORDERED: Lanolin 100% Cream 7 GM Tube TOP PRN (06:57)
[2022-01-04] MEDS ORDERED: Bisacodyl 10 MG Supp RECTAL PRN (06:57)
[2022-01-04] MEDS ORDERED: Docusate Sodium 100 MG Cap PO PRN (06:57)
[2022-01-04] MEDS ORDERED: Benzocaine/Menthol 20%-0.5% Spray 78 GM Cannister TOP PRN (06:57)
[2022-01-04] MEDS ORDERED: Witch Hazel Medicated Pads 40/Jar TOP PRN (06:57)
[2022-01-04] MEDS ORDERED: Ibuprofen 400 MG Tab PO PRN (06:57)
[2022-01-04] MEDS: Ibuprofen 800 MG Tab PO PRN ×2 (09:49→20:17)
== END 2022-01-05 11:52 | disposition home or self-care (01) | DRG 560 ==
LOC: MW.OBCHECK 20:20 → MW.OB 20:22 → MW.OBCHECK 20:37 → MW.OB 20:38 → OBSVTOIN 01-04 06:02 → MW.OB 01-04 15:50
PROVIDERS: ADMIT Obstetrics & Gynecology; ATTEND Obstetrics & Gynecology Obstetrics
PROC: 10E0XZZ Delivery of Products of Conception, External Approach (ICD-10-PCS; principal; 2022-01-04)
PROC: 3E0P7VZ Introduction of Hormone into Female Reproductive, Via Natural or Artificial Opening (ICD-10-PCS; 2022-01-04)
PROC: 3E0R3BZ Introduction of Anesthetic Agent into Spinal Canal, Percutaneous Approach (ICD-10-PCS; 2022-01-04)
PROC: 00HU33Z Insertion of Infusion Device into Spinal Canal, Percutaneous Approach (ICD-10-PCS; 2022-01-04)
DX: O80 Encounter for full-term uncomplicated delivery (principal); Z37.0 Single live birth; Z3A.39 39 weeks gestation of pregnancy; Z20.822 Contact with and (suspected) exposure to COVID-19
CPT/HCPCS: 01967; 36415; 51702; 59025; 59409; 85014; 85018; 85027; 86592; 86850; 86900; 86901; A9270-GY; J0131; J0290; J2405; J2590; J2795; J7120; U0002